=== PATIENT | female | born 1960 | race Caucasian/White ===

== ENCOUNTER → 2024-08-26 15:32 | Outpatient (REF) | payer OTHER, SELFPAY | LOC: HWRCS 15:32 | PROVIDERS: ATTENDING PHYSICIAN Internal Medicine Cardiovascular Disease; FAMILY PHYSICIAN Family Medicine Adult Medicine | DX: E78.00 Pure hypercholesterolemia, unspecified (principal); Z86.79 Personal history of other diseases of the circulatory system; I44.1 Atrioventricular block, second degree | CPT/HCPCS: 93306 ==